=== PATIENT | female | born 1985 | race Caucasian/White ===

== ENCOUNTER 2024-08-16 19:26 | Emergency (ER) | payer OTHER, SELFPAY ==
[2024-08-16 19:28] VITALS: BP 164/100
[2024-08-16 19:30] VITALS: BP 145/96
[2024-08-16 19:39] VITALS: BP 137/92
[2024-08-16 19:42] VITALS: BP 144/95
[2024-08-16 20:00] VITALS: BP 139/90
[2024-08-16 20:10] LABS: Urine Albumin Negative (Neg - Trace); Urine Bilirubin Negative (Negative); Urine Character Clear (Clear); Urine Color Yellow; Urine Glucose Negative (Negative); Urine Ketone Negative (Negative); Urine Leukocyte Negative (Negative); Urine Nitrite Negative (Negative); Urine Occult Blood Trace (Negative); Urine Red Blood Cell 0-2 /HPF (0-2); Urine Squamous Cell 0-2 /LPF (Few); Urine Urobilinogen Negative (Neg - 1+); Urine White Cell 0-2 /HPF (0-5)
[2024-08-16 20:11] LABS: % Basophils 0.3 % (0-2); % Eosinophils 2.3 % (0-6); % Immature Granulocytes 0.6 % (0-0.5); % Lymphocytes 15.8 % (20.5-51.1); % Monocytes 7.2 % (1.7-9.3); % Neutrophils 73.8 % (42.2-75.2); Absolute Eosinophils 0.2 10^3/uL (0-0.7); Absolute Immature Granulocytes 0.1 10^3/uL (0-0.05); Absolute Lymphocytes 1.4 10^3/uL (1.2-3.4); Absolute Monocytes 0.6 10^3/uL (0.1-0.6); Absolute Neutrophils 6.4 10^3/uL (1.4-6.5); Hematocrit 37.6 % (37.0-47.0); Hemoglobin 12.2 g/dL (12.0-16.0); Mean Corp Hgb Conc. 32.4 g/dL (33.0-37.0); Mean Corpuscular Hgb 29.1 pg (27.0-31.0); Mean Corpuscular Volume 89.7 fL (81.0-99.0); Mean Platelet Volume 9.9 fL (7.4-10.4); Nucleated Red Blood Cells % 0 %; Platelet Count 210 10^3/uL (130-400); Red Blood Cell Count 4.19 10^6/uL (4.20-5.40); Red Cell Dist. Width 12.4 % (11.5-14.5); White Blood Cell Count 8.7 10^3/uL (4.8-10.8)
[2024-08-16 20:25] LABS: Blood Urea Nitrogen 15 mg/dl (7-17); Carbon Dioxide 21 mmol/L (22-30); Chloride 106 mmol/L (98-107); Glucose 126 mg/dl (70-99); Potassium 4.2 mmol/L (3.5-5.1); Sodium 137 mmol/L (135-145); eGFR > 60.00
[2024-08-16 21:00] VITALS: BP 120/75
--- NOTE | 2024-08-16 21:17 | ED.GENMED ---
History of Present Illness
General
Chief Complaint: Blood Pressure Problem
Source: patient and spouse
Exam Limitations: none
Time Seen by Provider: 08/16/24 19:40
History of Present Illness
History of Present Illness:
This is a 39-year-old female who presents with concerns about her blood pressure. The patient delivered a baby boy 1 week ago. The patient states that toward the final weeks of her her blood pressure was a little bit elevated. Patient
states that they are monitoring it seemed to even out they did not need to deliver early. She delivered and casework supervisor said her. Subsequently, she was transferred over to [facility] for monitoring. Patient states that her blood pressure was a little
bit high at home she was started on nifedipine. She did have poor reactions and had abnormal symptoms a few days into it was switched to labetalol. She only took 1 dose of labetalol but today prior to taking that dose her blood pressure was 180s
over 98. She otherwise felt normal and had no symptoms. She specifically denies upper quadrant pain, headache, chest pain, shortness of breath or any neurologic symptoms. No vomiting. Patient states she otherwise is felt well. She did take a
dose of labetalol earlier this evening and her blood pressure did respond.
Past History
Past History
ED Past Medical History: None
ED Past Surgical History: Orthopedic (right foot)
Social History
Tobacco: Non-smoker
Personal:
Living: with family
Phy Exam
Physical Exam
Physical Exam:
CONSTITUTIONAL Patient alert and oriented to person, place and time. Well-appearing. Vital signs reviewed.
HEAD atraumatic, normocephalic.
EYES eyelids normal to inspection, Extraocular muscles intact, Conjunctiva normal, Sclera normal.
NECK normal range of motion, Trachea midline, no jugular venous distention.
RESPIRATORY CHEST No respiratory distress noted, Chest expansion equal, Bilateral breath sounds clear.
CARDIOVASCULAR regular rate and rhythm, Heart sounds normal.
ABDOMEN abdomen nontender, Bowel sounds normal. No distention.
BACK normal inspection, no obvious deformities
UPPER EXTREMITY range of motion normal, Motor strength normal, no cyanosis, no edema.
LOWER EXTREMITY range of motion normal, Motor strength normal, no cyanosis, no edema.
NEURO Speech normal, No focal motor deficits, Daylin coma scale 15, Memory normal, Cranial Nerves intact to screening exam.
SKIN skin warm, dry, and normal in color.
Course
Orders/Labs/Results
Orders:
Orders
08/16/24 19:55
EKG [Electrocardiogram (*1)] Urgent
Reason for Study: Hypertension, Benign
EKG- Treatment ONCE
08/16/24 20:01
BMP [Basic Metabolic Panel] Urgent
Complete Blood Count/With Diff Urgent
[facility] Urgent
Comment: ADD ON
Urinalysis Reflex To Culture Urgent
Date Specimen was Collected: 08/16/24
Time Specimen was Collected: 19:56
Urine Microscopic Reflex Cult Urgent
08/16/24 20:52
Add On- LAB Urgent
Tests Added?: LFT's
Abnormal Lab Results
08/16/24
20:01
RBC 4.19 L 10^6/uL
(4.20-5.40)
MCHC 32.4 L g/dL
(33.0-37.0)
Abs Immat Gran (auto) 0.1 H 10^3/uL
(0-0.05)
Immature Gran % 0.6 H %
(0-0.5)
Lymphocytes % 15.8 L %
(20.5-51.1)
Carbon Dioxide 21 L mmol/L
(22-30)
Glucose 126 H mg/dl
(70-99)
ALT 45 H U/L
(0-35)
Ur Occult Blood Reflex Trace A
(Negative)
08/16/24 20:01
08/16/24 20:01
Vital Signs
Initial and Last Documented VS:
Initial Vital Signs
Temp Pulse Resp BP Pulse Ox
98 F 93 16 164/100 99
08/16/24 19:28 08/16/24 19:28 08/16/24 19:28 08/16/24 19:28 08/16/24 19:28
Last Documented Vital Signs
Temp Pulse Resp BP Pulse Ox
99.5 F 93 16 120/75 96
08/16/24 21:03 08/16/24 19:28 08/16/24 19:28 08/16/24 21:00 08/16/24 21:30
MDM/Problems Addressed
Differential Diagnosis Includes:
Preeclampsia, eclampsia, -induced hypertension, renal failure collectively mL
MDM/Problems Addressed:
-induced hypertension
*Pulse Oximetry
Patient hypoxic: no
*EKG
Interpreted by ED Provider?: Yes
Interpretation: normal
Rate: normal
Rhythm: sinus
Equality: normal axis
Interval: normal interval
QRS Pattern: normal QRS
Ischemia: no ischemia
*Project Geophysicist Interpretation
Rate: normal
Interpretation: normal
Rhythm: sinus
*Critical Care Note
Total Time (30-74mins, 75-104mins- exclusive of procedures): Not Applicable
Data Reviewed
Source: patient and spouse
Prescriptions/Medications Considered But Not Given:
Considered IV antihypertensives but blood pressure has improved
Patient Management
Discussion with other providers: Academic Affairs Assistant (Case discussed with OB Dr. Ramos)
Escalation/DeEscalation of care consider admission/obs:
39-year-old female who presents with concerns of her blood pressure. She did take 200 mg labetalol earlier this evening. She is supposed to be on the twice daily but has only taken 1 dose. Patient has no symptoms. She otherwise feels normal.
She is being followed by her casework supervisor. Case discussed with OB. advises pt can f/u as oupt.
ED Attending Note
-
Portions of this chart may have been created with voice recognition software.� Occasional wrong word or��sound alike� substitutions may have occurred due to the inherent limitations of voice recognition software.
Discharge Plan
Departure
Patient Disposition: Home (Routine Discharge)
Date of Disposition: 08/16/24
Time of Disposition: 21:44
Patient with high blood pressure during this ER visit?: No
Discharge Problem:
induced hypertension
Instructions: High Blood Pressure (DC)
Prescriptions:
No Action
No Current Medications
0
Referrals:
Alireza Purdy MD [Family Provider] -
Activity Restrictions/Additional Instructions:
Please follow-up with your doctor or casework supervisor as planned and keep a log of your blood pressure daily. Return immediately for vision changes, headache, chest pain, shortness of breath, abdominal pain of any kind, numbness, tingling, weakness of any
kind or any other concerns. Please continue your labetalol. If your blood pressure starts to normalize you may start to wean down on the dosing of your blood pressure medication.
Interventions
Interventions:
*Risk Screen - Suicide Last Done: 08/16/24 19:28
*General Assessment Last Done: 08/16/24 20:26
*Neglect/Abuse Screening Last Done: 08/16/24 19:28
ED- Fall Risk Assessment Last Done: 08/16/24 19:37
ED- Cardiac Assessment Last Done: 08/16/24 19:37
ED-Female Genitourinary Assessment Last Done: 08/16/24 19:50
ED- Neurological Assessment Last Done: 08/16/24 19:37
ED- Pulmonary Assessment Last Done: 08/16/24 19:37
Discharge Date and Time
Print Language: GUAMANIAN
[2024-08-16 21:24] LABS: ALT (SGPT) 45 U/L (0-35); AST (SGOT) 28 U/L (14-36); Albumin 3.7 g/dl (3.5-5.0); Alkaline Phosphatase 114 U/L (38-126); Total Bilirubin 0.2 mg/dl (0.2-1.3); Total Protein 6.6 g/dl (6.3-8.2)
== END 2024-08-16 22:09 | disposition home or self-care (01) ==
LOC: EMR 19:26
PROVIDERS: EMERGENCY PHYSICIAN Emergency Medicine; FAMILY PHYSICIAN Family Medicine
DX: O16.5 Unspecified maternal hypertension, complicating the puerperium (principal)
CPT/HCPCS: 99283; 80048; 80076; 81003; 81015; 85025; 93005